=== PATIENT | male | born 1930 | race Caucasian/White ===

== ENCOUNTER → 2016-10-22 | Outpatient (CLI) | payer BC ==
[~2016-10-22] MED LIST: ALPPOPSD OPB; B-CO-25 PO; CHOL200027 PO; DORZ1SOL6 OPB; DUTACAP PO; LATA0.5S OPB; LEVO50TA PO; LPR25 PO; MIRA1TAB3 PO; MULT-190 PO; MULT-506 PO; WARF2.5T8 PO; WARF5TAB7 PO; ZNTT/150 PO
[2016-10-22 09:39] LABS: PROTHROMBIN TIME (PATIENT) 21.8 SECONDS (9.0-12.0)
== END ==
LOC: C.LABFOXMH 09:09
PROVIDERS: ATTEND Internal Medicine
DX: Z79.01 Long term (current) use of anticoagulants (principal)

== ENCOUNTER → 2016-11-05 | Outpatient (CLI) | payer BC ==
[2016-11-05 09:34] LABS: INR 2.2 (0.9-1.1); PROTHROMBIN TIME (PATIENT) 24.8 SECONDS (9.0-12.0)
== END | disposition home or self-care (01) ==
LOC: C.LABFOXMH 09:02
PROVIDERS: ATTEND Internal Medicine
DX: Z51.81 Encounter for therapeutic drug level monitoring (principal); Z79.01 Long term (current) use of anticoagulants

== ENCOUNTER → 2016-12-03 | Outpatient (CLI) | payer BC ==
[2016-12-03 08:48] LABS: HEMATOCRIT 40.8 % (42-52); MEAN CELL VOLUME 96.9 fL (80-100); MEAN CORPUSCULAR HEMOGLOBIN 34.2 pg (25-34); MEAN CORPUSCULAR HGB CONC 35.3 g/dl (32-36); MEAN PLATELET VOLUME 10.6 fL (7.4-10.4); PLATELET COUNT 147 K/uL (130-400); RED BLOOD COUNT 4.21 M/uL (4.7-6.1); WHITE BLOOD COUNT 5.92 K/uL (4.8-10.8)
[2016-12-03 08:56] LABS: INR 2.7 (0.9-1.1); PROTHROMBIN TIME (PATIENT) 29.6 SECONDS (9.0-12.0)
[2016-12-03 08:57] LABS: BLOOD UREA NITROGEN 24 mg/dl (7-18); BUN/CREATININE RATIO 20.3 (10-20); CALCIUM 8.9 mg/dl (8.5-10.1); CARBON DIOXIDE 25 mmol/L (21-32); CHLORIDE 111 mmol/L (98-107); GLUCOSE 90 mg/dl (70-99); POTASSIUM 3.9 mmol/L (3.5-5.1); SODIUM 144 mmol/L (136-145)
== END ==
LOC: C.LABFOXMH 08:24
PROVIDERS: ATTEND Internal Medicine
DX: Z79.01 Long term (current) use of anticoagulants (principal); I10 Essential (primary) hypertension

== ENCOUNTER → 2016-12-31 | Outpatient (CLI) | payer BC ==
[2016-12-31 09:25] LABS: INR 2.6 (0.9-1.1); PROTHROMBIN TIME (PATIENT) 28.4 SECONDS (9.0-12.0)
== END | disposition home or self-care (01) ==
LOC: C.LABFOXMH 08:41
PROVIDERS: ATTEND Internal Medicine
DX: Z79.01 Long term (current) use of anticoagulants (principal)

== ENCOUNTER → 2017-01-28 | Outpatient (CLI) | payer BC ==
[2017-01-28 09:10] LABS: INR 2.7 (0.9-1.1); PROTHROMBIN TIME (PATIENT) 29.9 SECONDS (9.0-12.0)
== END | disposition home or self-care (01) ==
LOC: C.LABFOXMH 08:42
PROVIDERS: ATTEND Internal Medicine
DX: Z51.81 Encounter for therapeutic drug level monitoring (principal); Z79.01 Long term (current) use of anticoagulants

== ENCOUNTER → 2017-02-25 | Outpatient (CLI) | payer BC ==
[2017-02-25 08:53] LABS: INR 3.1 (0.9-1.1); PROTHROMBIN TIME (PATIENT) 34.7 SECONDS (9.0-12.0)
== END | disposition home or self-care (01) ==
LOC: C.LABFOXMH 08:03
PROVIDERS: ATTEND Nurse Practitioner Family
DX: Z79.01 Long term (current) use of anticoagulants (principal)

== ENCOUNTER → 2017-03-04 | Outpatient (CLI) | payer BC ==
[2017-03-04 09:58] LABS: INR 2.7 (0.9-1.1); PROTHROMBIN TIME (PATIENT) 29.9 SECONDS (9.0-12.0)
== END ==
LOC: C.LABFOXMH 08:45
PROVIDERS: ATTEND Internal Medicine
DX: Z79.01 Long term (current) use of anticoagulants (principal)

== ENCOUNTER → 2017-03-18 | Outpatient (CLI) | payer BC ==
[2017-03-18 08:40] LABS: INR 3.2 (0.9-1.1); PROTHROMBIN TIME (PATIENT) 35.5 SECONDS (9.0-12.0)
== END ==
LOC: C.LABFOXMH 08:01
PROVIDERS: ATTEND Internal Medicine
DX: Z79.01 Long term (current) use of anticoagulants (principal)

== ENCOUNTER → 2017-04-08 | Outpatient (CLI) | payer BC ==
[2017-04-08 10:51] LABS: INR 2.7 (0.9-1.1); PROTHROMBIN TIME (PATIENT) 29.6 SECONDS (9.0-12.0)
== END ==
LOC: C.LABFOXMH 09:37
PROVIDERS: ATTEND Internal Medicine
DX: Z79.01 Long term (current) use of anticoagulants (principal)

== ENCOUNTER → 2017-04-15 | Outpatient (CLI) | payer BC ==
[2017-04-15 09:33] LABS: INR 2.1 (0.9-1.1)
== END | disposition home or self-care (01) ==
LOC: C.LABFOXMH 06:23
PROVIDERS: ATTEND Nurse Practitioner Family
DX: Z51.81 Encounter for therapeutic drug level monitoring (principal); Z79.01 Long term (current) use of anticoagulants

== ENCOUNTER → 2017-04-29 | Outpatient (CLI) | payer BC ==
[2017-04-29 09:04] LABS: INR 2.1 (0.9-1.1); PROTHROMBIN TIME (PATIENT) 23.1 SECONDS (9.0-12.0)
== END ==
LOC: C.LABFOXMH 08:33
PROVIDERS: ATTEND Nurse Practitioner Family
DX: Z79.01 Long term (current) use of anticoagulants (principal)

== ENCOUNTER 2017-05-16 22:56 | Emergency (ER) | payer BC ==
[~2017-05-16] VITALS: Ht 172.7 cm; Wt 64.6 kg
[~2017-05-16 22:56] MED LIST changes: -B-CO-25 PO; -LATA0.5S OPB; -MIRA1TAB3 PO; -MULT-506 PO; -ZNTT/150 PO
[2017-05-16 23:04] VITALS: TEMP 36.6; Ht 172.7 cm; Wt 64.6 kg
[2017-05-16] MEDS ORDERED: MULT-506 PO (23:19)
[2017-05-16] MEDS ORDERED: B-CO-25 PO (23:22)
[2017-05-16] MEDS ORDERED: ZNTT/150 PO (23:23)
[2017-05-16] MEDS ORDERED: LATA0.5S OPB (23:24)
[2017-05-16] MEDS ORDERED: MIRA1TAB3 PO (23:25)
[2017-05-17 00:16] LABS: BASO % 0.4 %; BASO ABS # 0.03 K/uL (0-0.2); COMPLETE YES; EOS % 2.1 %; HEMATOCRIT 41.2 % (42-52); IG% 0.3 %; LYMPH % 20.5 %; LYMPH ABS # 1.43 K/uL (1.2-3.4); MEAN CORPUSCULAR HEMOGLOBIN 34.6 pg (25-34); MEAN PLATELET VOLUME 10.1 fL (7.4-10.4); MONO % 9.2 %; NEUT % 67.5 %; PLATELET COUNT 125 K/uL (130-400); RED BLOOD COUNT 4.16 M/uL (4.7-6.1); WHITE BLOOD COUNT 6.98 K/uL (4.8-10.8)
[2017-05-17 00:30] LABS: INR 2.4 (0.9-1.1); PROTHROMBIN TIME (PATIENT) 26.9 SECONDS (9.0-12.0)
[2017-05-17 00:33] LABS: BUN/CREATININE RATIO 19.9 (10-20); CREATININE 1.1 mg/dl (0.60-1.40); POTASSIUM 4.3 mmol/L (3.5-5.1)
[2017-05-17] MEDS ORDERED: OPTIRAY 320 IV PRN (02:45)
--- NOTE | 2017-05-17 04:23 | EMERGENCY ROOM VISIT NOTE ---
History Report prepared by Rahat: Juan Meza Under the Supervision of: Dr. Melyssa Galicia D.O. First contact with patient: 23:27 Chief Complaint: FALL Stated Complaint: fall History of Present Illness The patient is a 87 year old male who presents to the Emergency Room with complaints of constant forehead pain s/p fall occurring shortly prior to arrival. He is on Coumadin for a-fib. The patient states that he slipped while changing his pants and fell forward. He states that he hit his forehead and left shoulder during the fall. He is legally blind. The patient did not lose consciousness. He states that he did not feel weak or abnormal prior to his fall. He believes that his tetanus is up to date. Source of History: patient Onset: Shortly prior to arrival Position: head (forehead) Timing: constant Associated Symptoms: No LOC Note: Additional symptoms: left shoulder pain. Review of Systems See HPI for pertinent positives & negatives. A total of 10 systems reviewed and were otherwise negative. 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 Social History Smoking Status: Former Smoker Alcohol Use: none Drug Use: none Marital Status: Housing Status: lives with family Occupation Status: retired Current/Historical Medications Scheduled B-Complex W/ Folic Acid (Super B Complex Maxi), 1 TAB PO DAILY Brimonidine Tartrate (Alphagan P), 1 DROP OPB BID Cholecalciferol (Vitamin D-3), 1 TAB PO QAM Dorzolamide Hcl-Timolol Maleat (Cosopt Oph), 1 DROPS OPB BID Dutasteride-Tamsulosin Hcl (Caroline), 1 CAP PO QPM Latanoprost (Xalatan 0.005% Oph Carlota), 1 DROPS OPB HS Levothyroxine Sodium (Synthroid), 50 MCG PO QAM Metoprolol Tartrate (Lopressor), 12.5 MG PO BID Mirabegron (Myrbetriq Er), 50 MG PO DAILY Multivitamin (Multivitamin), 1 TAB PO DAILY Ocuvite Preservision (Ocuvite Preservision), 1 TAB PO BID Ranitidine (Zantac), 150 MG PO BID Warfarin Sod (Jantoven), 2.5 MG PO 5XWK Warfarin Sod (Jantoven), 5 MG PO 2XWK Allergies Coded Allergies: No Known Allergies (Verified , 05/16/17) Physical Exam Vital Signs Date Time Temp Pulse Resp B/P (MAP) Pulse Ox O2 Delivery O2 Flow Rate FiO2 05/17/17 04:35 96 94 05/17/17 04:30 166/104 05/17/17 04:20 89 98 05/17/17 04:05 93 99 05/17/17 04:00 153/99 05/17/17 03:50 98 99 05/17/17 03:38 93 18 145/88 99 Room Air 05/17/17 03:35 92 98 05/17/17 03:34 145/88 05/17/17 03:01 147/83 05/17/17 02:50 86 98 05/17/17 02:35 90 99 05/17/17 02:30 148/88 05/17/17 02:21 94 98 05/17/17 02:06 79 97 05/17/17 02:01 128/93 05/17/17 01:56 80 99 05/17/17 01:41 88 99 05/17/17 01:30 160/87 05/17/17 01:26 103 95 05/17/17 01:11 89 99 05/17/17 01:06 145/94 05/17/17 00:25 87 16 149/88 99 Room Air 05/17/17 00:24 149/88 05/16/17 23:04 36.6 84 20 158/92 99 Room Air Physical Exam GENERAL: alert, well appearing, well nourished, no distress, non-toxic HEAD: Contusion and edema to the left frontoparietal region. Old surgical site, well healed on the left forehead from prior excision. EYE EXAM: normal conjunctiva, PERRL and EOM's grossly intact. Decreased vision, but chronic. OROPHARYNX: no exudate, no erythema, lips, buccal mucosa, and tongue normal and mucous membranes are moist NECK: supple, no nuchal rigidity, no adenopathy. Mild tenderness to the left lower left paraspinal area. No midline tenderness. LUNGS: Clear to auscultation. Lung sounds decreased. Normal chest wall mechanics HEART: Irregular. No murmurs, S1 normal and S2 normal ABDOMEN: abdomen soft, non-tender, normo-active bowel sounds, no masses, no rebound or guarding. BACK: Back is symmetrical on inspection and there is no deformity, no midline tenderness, no CVA tenderness. SKIN: no rashes and no bruising UPPER EXTREMITIES: Skin avulsion just proximal to the thenar eminence. Bleeding controlled. Normal pulses, sensory and strength. ALTAF has a dressing in place at the left elbow, which states is from prior injury. Tenderness and contusion to the left shoulder over the humeral head. Decreased ROM secondary to pain. No obvious dislocation. LOWER EXTREMITIES: Scattered superficial abrasions to the bilateral knees. Normal pulses. No deformities. No edema or joint effusion. NEURO EXAM: Normal sensorium, cranial nerves II-XII grossly intact, normal speech, no gross weakness of arms, no gross weakness of legs. Medical Decision & Procedures ER Provider Diagnostic Interpretation: CT results per statrad and my review. CT HEAD: No acute intracranial abnormality identified. Minimal right posterior scalp hematoma/bruising. No skull fracture. Chronic small vessel ischemic disease and cerebral volume loss, increased compared to prior exam in 2009. CT C-SPINE: No acute traumatic abnormality identified. Multilevel degenerative changes of the cervical spine. CT CHEST With Contrast: The heart appears normal. The thoracic aorta appears normal. No definite pulmonary embolus although this was not performed as a PE study. Mild dependent atelectasis bilaterally. Lungs are otherwise clear. No focal consolidation, pleural effusion, or pneumothorax. Calcified prevascular and AP window lymph nodes likely represent sequel of prior granulomatous disease. Status post cholecystectomy. Punctate calcifications in the spleen likely represent old granulomatous disease. Two View Chest X-ray interpreted by me: No cardiomegaly. No wide mediastinum. No pneumothorax. No focal infiltrate. No fracture. Two View Left Shoulder X-ray interpreted by me: No humerus fracture. No clavicular fracture. Questionable scapula fracture. No dislocation. Three View Right Hand X-ray interpreted by me: No fracture or foreign body. Two View Pelvis X-ray interpreted by me: No fracture or dislocation. Laboratory Results 05/17/17 00:00 Red Blood Count 4.16, Mean Corpuscular Volume 99.0, Mean Corpuscular Hemoglobin 34.6, Mean Corpuscular Hemoglobin Concent 35.0, Mean Platelet Volume 10.1, Neutrophils (%) (Auto) 67.5, Lymphocytes (%) (Auto) 20.5, Monocytes (%) (Auto) 9.2, Eosinophils (%) (Auto) 2.1, Basophils (%) (Auto) 0.4, Neutrophils # (Auto) 4.71, Lymphocytes # (Auto) 1.43, Monocytes # (Auto) 0.64, Eosinophils # (Auto) 0.15, Basophils # (Auto) 0.03 05/17/17 00:00 Test 05/17/17 00:00 White Blood Count 6.98 K/uL (4.8-10.8) Red Blood Count 4.16 M/uL (4.7-6.1) Hemoglobin 14.4 g/dL (14.0-18.0) Hematocrit 41.2 % (42-52) Mean Corpuscular Volume 99.0 fL (80-100) Mean Corpuscular Hemoglobin 34.6 pg (25-34) Mean Corpuscular Hemoglobin Concent 35.0 g/dl (32-36) Platelet Count 125 K/uL (130-400) Mean Platelet Volume 10.1 fL (7.4-10.4) Neutrophils (%) (Auto) 67.5 % Lymphocytes (%) (Auto) 20.5 % Monocytes (%) (Auto) 9.2 % Eosinophils (%) (Auto) 2.1 % Basophils (%) (Auto) 0.4 % Neutrophils # (Auto) 4.71 K/uL (1.4-6.5) Lymphocytes # (Auto) 1.43 K/uL (1.2-3.4) Monocytes # (Auto) 0.64 K/uL (0.11-0.59) Eosinophils # (Auto) 0.15 K/uL (0-0.5) Basophils # (Auto) 0.03 K/uL (0-0.2) RDW Standard Deviation 49.9 fL (36.4-46.3) RDW Coefficient of Variation 14.0 % (11.5-14.5) Immature Granulocyte % (Auto) 0.3 % Immature Granulocyte # (Auto) 0.02 K/uL (0.00-0.02) Prothrombin Time 26.9 SECONDS (9.0-12.0) Prothromb Time International Ratio 2.4 (0.9-1.1) Anion Gap 4.0 mmol/L (3-11) Est Creatinine Clear Calc Drug Dose 41.6 ml/min Estimated GFR () 68.6 Estimated GFR (Non- 59.2 BUN/Creatinine Ratio 19.9 (10-20) Calcium Level 9.0 mg/dl (8.5-10.1) Laboratory results per my review. ECG Indication: other (fall) Rate (beats per minute): 81 Rhythm: atrial fibrillation Findings: RBBB, T-wave inversion, other (LAD. ) Comparison ECG Date: Aug 13, 2015 Change: no significant change ED Course 2329: The patient was evaluated in room A4B. A complete history and physical exam was performed. 0415: Upon reevaluation, the patient is feeling better. I discussed the findings and the treatment plan with the patient. He verbalizes agreement and understanding. The patient was discharged home. Medical Decision Differential diagnosis: Etiologies such as fracture, dislocation, intra-abdominal, pneumothorax, intrathoracic , intracranial, neurologic, as well as other traumatic pathologies were entertained. Patient well-appearing here despite complaints. Patient with history of falls due to poor vision. states he is frequently off balance as a result. No traumatic injury identified other than contusions and abrasions as well as skin tears noted on exam. Patient had no other complaints or evolving symptoms during time he was observed in the emergency room. Patient's INR therapeutic, labs otherwise unremarkable. Discussed with patient and family close follow-up with family doctor, continued use of medications, symptoms to watch and return for, they verbalized understanding were agreeable with plan. Doubt any additional occult traumatic intra-abdominal or pelvic injury. Doubt any additional occult fracture. Medication Reconcilliation Current Medication List: was personally reviewed by me Blood Pressure Screening Patient's blood pressure: Elevated blood pressure Blood pressure disposition: Elevated BP felt to be situational Impression Primary Impression: Fall Additional Impressions: Contusion of multiple sites Abrasion Skin tear Scribe Attestation The scribe's documentation has been prepared under my direction and personally reviewed by me in its entirety. I confirm that the note above accurately reflects all work, treatment, procedures, and medical decision making performed by me. Departure Information Dispostion Home / Self-Care Referrals Jose Julian (PCP) Patient Instructions My [facility] Additional Instructions Please continue regular medications as prescribed. Please follow up with her family doctor to assure that all of your injuries are healing well. Please monitor for any increasing pain, trouble breathing, dizziness, vomiting, redness /discharge/drainage from around your wounds, or if you have any other new or concerning symptoms, please return the emergency room. Problem Qualifiers Primary Impression: Fall Encounter type: initial encounter Qualified Codes: W19.XXXA - Unspecified fall, initial encounter
[2017-05-17 04:30] VITALS: BP 166/104
[2017-05-17 04:35] VITALS: PULSE 96; O2SAT 94
--- NOTE | 2017-05-17 06:59 | DIAGNOSTIC IMAGING REPORT ---
HEAD CT NONCONTRAST CT DOSE: HISTORY: Head injury. Fall. trauma, chi, coumadin TECHNIQUE: Multiaxial CT images of the head were performed without the use of intravenous contrast. Automated exposure control was utilized for this study. A dose lowering technique was utilized adhering to the principles of ALARA. Comparison: Head CT 09/23/2009. Findings: The paranasal sinuses and mastoid air cells are clear. The calvarium and skull base are intact. There is no mass, hematoma, midline shift, acute infarct. White matter hypodensity is nonspecific but suggestive of microvascular ischemic change. The ventricles and sulci demonstrate mild age-related involutional changes. Impression: No acute intracranial abnormality. Atrophy and microvascular ischemic changes. Electronically signed by: Mahad Pickens M.D. 05/17/2017 6:58 AM Dictated Date/Time: 05/17/2017 6:56 AM
--- NOTE | 2017-05-17 07:35 | DIAGNOSTIC IMAGING REPORT ---
CERVICAL SPINE CT CT DOSE: 1091.29 mGy.cm HISTORY: trauma TECHNIQUE: Multiaxial CT images of the cervical spine were performed and reformatted in the sagittal and coronal plane without the use of contrast. A dose lowering technique was utilized adhering to the principles of ALARA. COMPARISON: None. FINDINGS: No acute fractures. No subluxation. Prevertebral soft tissues and the C1-C2 interval are intact. No pneumothorax. Moderate disc space narrowing at C3-C4, C4-C5, and C5-C6. Mild disc space narrowing at C6-C7. Lucency through the right anterior C4 osteophyte does not appear to represent an acute fracture. There is no adjacent soft tissue swelling. IMPRESSION: No acute fractures within the cervical spine. Electronically signed by: Mahad Pickens M.D. 05/17/2017 7:34 AM Dictated Date/Time: 05/17/2017 7:30 AM
--- NOTE | 2017-05-17 07:56 | DIAGNOSTIC IMAGING REPORT ---
CHEST CT WITH CONTRAST CT DOSE: 305.35 mGy.cm HISTORY: trauma, left scapula/shoulder TECHNIQUE: Multiaxial CT images of the chest were performed following the intravenous administration of contrast. A dose lowering technique was utilized adhering to the principles of ALARA. COMPARISON: None. FINDINGS: No pneumothorax. No pleural effusions. No fractures within the visualized osseous structures. Mild dependent changes seen at the lung bases. The lungs are otherwise clear. The heart is mildly enlarged. Normal caliber thoracic aorta. No mediastinal or hilar lymphadenopathy. A few calcified mediastinal lymph nodes. The central pulmonary arteries are patent. Cholecystectomy. Calcifications within the spleen. A 1.5 cm hypervascular focus within the left hepatic lobe. This favors a hepatic varix. IMPRESSION: No acute abnormality identified within the chest. Additional findings as described above. Electronically signed by: Mahad Pickens M.D. 05/17/2017 7:55 AM Dictated Date/Time: 05/17/2017 7:49 AM
--- NOTE | 2017-05-17 08:25 | DIAGNOSTIC IMAGING REPORT ---
PELVIS ONE VIEW HISTORY: trauma COMPARISON: IVP 10/15/2009 FINDINGS: There is no fracture or dislocation. Soft tissues are unremarkable. No radiopaque foreign bodies. IMPRESSION: No fractures. Electronically signed by: Mahad Pickens M.D. 05/17/2017 8:24 AM Dictated Date/Time: 05/17/2017 8:23 AM
--- NOTE | 2017-05-17 08:26 | DIAGNOSTIC IMAGING REPORT ---
CHEST 2 VIEWS ROUTINE HISTORY: trauma COMPARISON: Chest 08/13/2015. FINDINGS: The lungs are clear. Cardiac silhouette is borderline enlarged. Calcified mediastinal lymph nodes.. No pleural effusions. No pneumothorax. IMPRESSION: No acute process. Electronically signed by: Mahad Pickens M.D. 05/17/2017 8:25 AM Dictated Date/Time: 05/17/2017 8:24 AM
--- NOTE | 2017-05-17 08:28 | DIAGNOSTIC IMAGING REPORT ---
LEFT SHOULDER 3 VIEWS HISTORY: Left shoulder pain. trauma COMPARISON: None. FINDINGS: There is no fracture or dislocation. Soft tissues are unremarkable. No radiopaque foreign bodies. Mild degenerative changes. The left clavicle is intact. IMPRESSION: No fractures. Electronically signed by: Mahad Pickens M.D. 05/17/2017 8:26 AM Dictated Date/Time: 05/17/2017 8:25 AM
--- NOTE | 2017-05-17 08:29 | DIAGNOSTIC IMAGING REPORT ---
RIGHT HAND 3 VIEWS HISTORY: Right hand pain. trauma Right COMPARISON: None. FINDINGS: There is no fracture or dislocation. Soft tissues are unremarkable. No radiopaque foreign bodies. Flexion deformity at the PIP joint of the right fifth digit. This may be chronic. IMPRESSION: No fractures. Electronically signed by: Mahad Pickens M.D. 05/17/2017 8:28 AM Dictated Date/Time: 05/17/2017 8:26 AM
== END 2017-05-17 04:40 | disposition home or self-care (01) ==
LOC: EDBD 22:56 → C.EDA 22:59
DX: T14.8 Other injury of unspecified body region (principal); W19.XXXA Unspecified fall, initial encounter; I48.91 Unspecified atrial fibrillation; E03.9 Hypothyroidism, unspecified; I38 Endocarditis, valve unspecified; Z87.891 Personal history of nicotine dependence; Z79.01 Long term (current) use of anticoagulants

== ENCOUNTER → 2017-05-27 | Outpatient (CLI) | payer BC ==
[~2017-05-27] MED LIST changes: +B-CO-25 PO; +LATA0.5S OPB; +MIRA1TAB3 PO; +MULT-506 PO; +ZNTT/150 PO
[2017-05-27 08:37] LABS: INR 2.4 (0.9-1.1); PROTHROMBIN TIME (PATIENT) 26.2 SECONDS (9.0-12.0)
== END | disposition home or self-care (01) ==
LOC: C.LABFOXMH 08:02
PROVIDERS: ATTEND Nurse Practitioner Family
DX: Z51.81 Encounter for therapeutic drug level monitoring (principal); Z79.01 Long term (current) use of anticoagulants

== ENCOUNTER → 2017-06-24 | Outpatient (CLI) | payer BC ==
[2017-06-24 11:01] LABS: INR 2.1 (0.9-1.1); PROTHROMBIN TIME (PATIENT) 23.6 SECONDS (9.0-12.0)
== END | disposition home or self-care (01) ==
LOC: C.LABFOXMH 09:14
PROVIDERS: ATTEND Nurse Practitioner Family
DX: Z51.81 Encounter for therapeutic drug level monitoring (principal); Z79.01 Long term (current) use of anticoagulants

== ENCOUNTER → 2017-07-22 | Outpatient (CLI) | payer BC ==
[2017-07-22 10:05] LABS: PROTHROMBIN TIME (PATIENT) 21.5 SECONDS (9.0-12.0)
== END | disposition home or self-care (01) ==
LOC: C.LABFOXMH 09:04
PROVIDERS: ATTEND Internal Medicine Hospice and Palliative Medicine
DX: Z51.81 Encounter for therapeutic drug level monitoring (principal); Z79.01 Long term (current) use of anticoagulants

== ENCOUNTER → 2017-08-05 | Outpatient (CLI) | payer BC ==
[2017-08-05 08:35] LABS: INR 2.8 (0.9-1.1); PROTHROMBIN TIME (PATIENT) 31.5 SECONDS (9.0-12.0)
== END | disposition home or self-care (01) ==
LOC: C.LABFOXMH 08:12
PROVIDERS: ATTEND Internal Medicine
DX: Z51.81 Encounter for therapeutic drug level monitoring (principal); Z79.01 Long term (current) use of anticoagulants

== ENCOUNTER → 2017-08-19 | Outpatient (CLI) | payer BC ==
[2017-08-19 08:55] LABS: HEMATOCRIT 40.1 % (42-52); MEAN CORPUSCULAR HEMOGLOBIN 34.3 pg (25-34); MEAN CORPUSCULAR HGB CONC 34.7 g/dl (32-36); MEAN PLATELET VOLUME 10.4 fL (7.4-10.4); PLATELET COUNT 149 K/uL (130-400); RED BLOOD COUNT 4.05 M/uL (4.7-6.1); WHITE BLOOD COUNT 6.25 K/uL (4.8-10.8)
[2017-08-19 09:03] LABS: INR 3.3 (0.9-1.1); PROTHROMBIN TIME (PATIENT) 36.8 SECONDS (9.0-12.0)
[2017-08-19 09:05] LABS: ALT/SGPT 19 U/L (12-78); BLOOD UREA NITROGEN 27 mg/dl (7-18); BUN/CREATININE RATIO 26.5 (10-20); CALCIUM 8.7 mg/dl (8.5-10.1); CARBON DIOXIDE 22 mmol/L (21-32); CHLORIDE 112 mmol/L (98-107); CREATININE 1.02 mg/dl (0.60-1.40); GLUCOSE 90 mg/dl (70-99); POTASSIUM 3.9 mmol/L (3.5-5.1); SODIUM 142 mmol/L (136-145)
[2017-08-19 09:16] LABS: ALB/GLOB RATIO 1.2 (0.9-2); ALKALINE PHOSPHATASE 168 U/L (45-117); AST/SGOT 16 U/L (15-37)
== END | disposition home or self-care (01) ==
LOC: C.LABFOXMH 08:25
PROVIDERS: ATTEND Internal Medicine
DX: I10 Essential (primary) hypertension (principal); E03.9 Hypothyroidism, unspecified

== ENCOUNTER → 2017-09-02 | Outpatient (CLI) | payer BC ==
[2017-09-02 09:40] LABS: INR 2.3 (0.9-1.1); PROTHROMBIN TIME (PATIENT) 25.7 SECONDS (9.0-12.0)
== END | disposition home or self-care (01) ==
LOC: C.LABFOXMH 09:01
PROVIDERS: ATTEND Internal Medicine Hospice and Palliative Medicine
DX: Z79.01 Long term (current) use of anticoagulants (principal); Z51.81 Encounter for therapeutic drug level monitoring; E03.9 Hypothyroidism, unspecified

== ENCOUNTER → 2017-09-30 | Outpatient (CLI) | payer BC ==
[2017-09-30 08:18] LABS: INR 2.2 (0.9-1.1); PROTHROMBIN TIME (PATIENT) 22.6 SECONDS (9.0-12.0)
== END | disposition home or self-care (01) ==
LOC: C.LABFOXMH 07:55
PROVIDERS: ATTEND Internal Medicine
DX: Z79.01 Long term (current) use of anticoagulants (principal)

== ENCOUNTER 2017-10-19 16:07 | Observation (INO) | payer BC ==
[~2017-10-19] VITALS: Ht 170.2 cm; Wt 58.0 kg
[2017-10-19] MEDS ORDERED: SODIUM CHLORIDE 0.9% 1000ML 1,000 ML IV STA (17:19)
[2017-10-19] MEDS ORDERED: SODIUM CHLORIDE 0.9% 500ML 500 ML IV STA (17:19)
[2017-10-19] MEDS ORDERED: RMNER16 PO (17:40)
--- NOTE | 2017-10-19 18:20 | DIAGNOSTIC IMAGING REPORT ---
CHEST ONE VIEW PORTABLE CLINICAL HISTORY: Weakness. COMPARISON STUDY: Chest radiograph and chest CT May 17, 2017. FINDINGS: No pneumothorax or pleural effusion is present. There is no consolidation. A calcified prevascular lymph node is noted. Moderate cardiomegaly is noted without evidence for pulmonary edema. A nodular density projecting over left lower lung favors a nipple shadow. There are cholecystomy clips. IMPRESSION: 1. No acute cardiomegaly findings. 2. Moderate cardiomegaly. 3. 1 cm nodular density which projects over the left lower lung. This favors a nipple shadow however a follow-up PA and shallow oblique radiographs of the chest with nipple markers are recommended. Electronically signed by: Torsten Black M.D. 10/19/2017 6:19 PM Dictated Date/Time: 10/19/2017 6:17 PM
[2017-10-19 18:41] LABS: BASO % 0.4 %; BASO ABS # 0.03 K/uL (0-0.2); EOS % 1.5 %; EOS ABS # 0.11 K/uL (0-0.5); HEMATOCRIT 47.7 % (42-52); HEMOGLOBIN 16.8 g/dL (14.0-18.0); IG# 0.02 K/uL (0.00-0.02); LYMPH % 27.4 %; LYMPH ABS # 2.06 K/uL (1.2-3.4); MEAN CELL VOLUME 98.4 fL (80-100); MEAN CORPUSCULAR HEMOGLOBIN 34.6 pg (25-34); MEAN CORPUSCULAR HGB CONC 35.2 g/dl (32-36); MEAN PLATELET VOLUME 10.5 fL (7.4-10.4); MONO % 9.2 %; MONO ABS # 0.69 K/uL (0.11-0.59); NEUT % 61.2 %; NEUT ABS # 4.62 K/uL (1.4-6.5); PLATELET COUNT 156 K/uL (130-400); RED CELL DISTRIBUTION WIDTH CV 13.6 % (11.5-14.5); RED CELL DISTRIBUTION WIDTH SD 48.5 fL (36.4-46.3); WHITE BLOOD COUNT 7.53 K/uL (4.8-10.8)
[2017-10-19 18:52] LABS: PTT PATIENT 36.3 SECONDS (21.0-31.0)
[2017-10-19 18:54] LABS: INR 3.8 (0.9-1.1)
[2017-10-19 18:59] LABS: ALBUMIN 3.8 gm/dl (3.4-5.0); ALT/SGPT 23 U/L (12-78); AST/SGOT 18 U/L (15-37); BLOOD UREA NITROGEN 53 mg/dl (7-18); CARBON DIOXIDE 33 mmol/L (21-32); CREATININE 1.51 mg/dl (0.60-1.40); GLUCOSE 94 mg/dl (70-99); LIPASE 241 U/L (73-393); POTASSIUM 3.1 mmol/L (3.5-5.1); SODIUM 140 mmol/L (136-145)
[2017-10-19 19:08] LABS: ALKALINE PHOSPHATASE 118 U/L (45-117); CKMB 0.7 ng/ml (0.5-3.6); TOTAL PROTEIN 7.1 gm/dl (6.4-8.2)
--- NOTE | 2017-10-19 20:14 | DIAGNOSTIC IMAGING REPORT ---
ULTRASOUND RIGHT UPPER QUADRANT ABDOMEN CLINICAL HISTORY: Elevated hepatic transaminases. Weakness. COMPARISON STUDY: Abdominal ultrasound dated 01/04/2010. TECHNIQUE: Real-time, grayscale, and color flow sonography of the right upper quadrant of the abdomen was performed. Images are reviewed in the transverse and longitudinal planes. FINDINGS: Liver: The liver is normal in size and echotexture. There is no intrahepatic biliary ductal dilatation. The main portal vein is patent. Gallbladder: The gallbladder is surgically absent. The common bile duct measures up to 0.4 cm in diameter. Pancreas: Not well assessed due to overlying bowel gas. Right kidney: Survey images of the right kidney demonstrate cortical atrophy. There is no hydronephrosis. Ascites: None. IMPRESSION: 1. Unremarkable sonographic assessment of the right upper quadrant noting status post cholecystectomy. 2. The pancreas was not visualized due to overlying bowel gas. Electronically signed by: Ranjan Roa M.D. 10/19/2017 8:13 PM Dictated Date/Time: 10/19/2017 8:12 PM
[2017-10-19] MEDS ORDERED: POTASSIUM CHLORIDE 10 MEQ TABCR PO STA (20:36)
[2017-10-19] MEDS ORDERED: NITROGLYCERIN 0.4 MG SL PER TAB CHARGE SL PRN (20:45)
[2017-10-19] MEDS ORDERED: MAGNESIUM HYDROXIDE SUSP 30 ML UDC PO PRN (20:45)
[2017-10-19] MEDS ORDERED: ACETAMINOPHEN 325 MG TAB PO PRN (20:45)
[2017-10-19] MEDS ORDERED: ONDANSETRON INJ 2 MG/ML 2 ML VIAL IV PRN (20:45)
--- NOTE | 2017-10-19 21:15 | EMERGENCY ROOM VISIT NOTE ---
History Report prepared by Rahat: Dylon Miguel Under the Supervision of: Dr. Satnam Tierney M.D. First contact with patient: 16:18 Chief Complaint: WEAKNESS Stated Complaint: WEAKNESS,DIZZINESS History of Present Illness The patient is an 87 year old male who presents to the Emergency Room with complaints of worsening weakness and dizziness. The patient's called the nurses station who found that he was hypotensive. His pressure was 97/52. They did in ECG and faxed it to his configuration manager who found EKG changes including new T-wave inversions and ST-depressions. The patient's states that he mentioned that he felt as though he was going to pass out. The notes that he has been having worsening trouble with incontinence which has been bothering him for the past week or so. The patient's urine was tested for infection last Thursday, one week ago. The urine was unremarkable. The patient is on Coumadin for atrial fibrillation. Pt denies LOC, headache, fevers, chills, diaphoresis, visual changes, neck pain, chest pain, breathing difficulties, nausea, vomiting, abdominal pain, back pain, melena, hematochezia, urinary symptoms, numbness, weakness, lymphadenopathy, rash, or other complaints. Source of History: patient, spouse/significant other Position: other (Global) Quality: other (weakness) Timing: worsening Associated Symptoms: + urinary symptoms, No chest pain, No SOB Review of Systems See HPI for pertinent positives and negatives. A total of ten systems were reviewed and were otherwise negative. 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 Social History Smoking Status: Former Smoker Alcohol Use: none Drug Use: none Marital Status: Housing Status: lives with family Occupation Status: retired Current/Historical Medications Scheduled B-Complex W/ Folic Acid (Super B Complex Maxi), 1 TAB PO DAILY Brimonidine Tartrate (Alphagan P), 1 DROP OPB BID Cholecalciferol (Vitamin D-3), 1 TAB PO QAM Dorzolamide Hcl-Timolol Maleat (Cosopt Oph), 1 DROPS OPB BID Dutasteride-Tamsulosin Hcl (Caroline), 1 CAP PO QPM Galantamine Hydrobromide (Razadyne Ext Rel), 16 MG PO DAILY Latanoprost (Xalatan 0.005% Oph Carlota), 1 DROPS OPB HS Levothyroxine Sodium (Synthroid), 50 MCG PO QAM Metoprolol Tartrate (Lopressor), 12.5 MG PO BID Mirabegron (Myrbetriq Er), 50 MG PO DAILY Multivitamin (Multivitamin), 1 TAB PO DAILY Ocuvite Preservision (Ocuvite Preservision), 1 TAB PO BID Warfarin Sod (Jantoven), 2.5 MG PO DIRECTED Allergies Coded Allergies: No Known Allergies (Verified , 05/16/17) Physical Exam Vital Signs Date Time Temp Pulse Resp B/P (MAP) Pulse Ox O2 Delivery O2 Flow Rate FiO2 10/19/17 20:39 82 10/19/17 20:15 78 16 122/75 98 Room Air 10/19/17 18:24 36.9 84 18 116/77 99 Room Air 10/19/17 17:25 97 Room Air 10/19/17 17:18 36.6 76 18 118/82 98 Room Air 10/19/17 16:32 76 10/19/17 16:13 36.3 82 20 95/66 98 Room Air Physical Exam GENERAL: Awake, alert, age appropriate, tired-appearing, in no distress HENT: Normocephalic, atraumatic. Oropharynx unremarkable. EYES: Normal conjunctiva. Sclera non-icteric. NECK: Supple. No nuchal rigidity. FROM. No JVD. RESPIRATORY: Clear to auscultation. CARDIAC: Regular rate, normal rhythm. Extremities warm and well perfused. Pulses equal. ABDOMEN: Soft, non-distended. No tenderness to palpation. No rebound or guarding. No masses. RECTAL: Deferred. MUSCULOSKELETAL: Chest examination reveals no tenderness. The back is symmetrical on inspection without obvious abnormality. There is no CVA tenderness to palpation. No joint edema. LOWER EXTREMITIES: Minor scratch on the left ying. Calves are equal size bilaterally and non-tender. No edema. No discoloration. NEURO: Normal sensorium. No sensory or motor deficits noted. SKIN: No rash or jaundice noted. Medical Decision & Procedures ER Provider Diagnostic Interpretation: Radiology results as stated below per my review and radiologist interpretation: CHEST ONE VIEW PORTABLE CLINICAL HISTORY: Weakness. COMPARISON STUDY: Chest radiograph and chest CT May 17, 2017. FINDINGS: No pneumothorax or pleural effusion is present. There is no consolidation. A calcified prevascular lymph node is noted. Moderate cardiomegaly is noted without evidence for pulmonary edema. A nodular density projecting over left lower lung favors a nipple shadow. There are cholecystomy clips. IMPRESSION: 1. No acute cardiomegaly findings. 2. Moderate cardiomegaly. 3. 1 cm nodular density which projects over the left lower lung. This favors a nipple shadow however a follow-up PA and shallow oblique radiographs of the chest with nipple markers are recommended. Electronically signed by: Torsten Black M.D. 10/19/2017 6:19 PM Dictated Date/Time: 10/19/2017 6:17 PM Laboratory Results 10/19/17 18:20 Red Blood Count 4.85, Mean Corpuscular Volume 98.4, Mean Corpuscular Hemoglobin 34.6, Mean Corpuscular Hemoglobin Concent 35.2, Mean Platelet Volume 10.5, Neutrophils (%) (Auto) 61.2, Lymphocytes (%) (Auto) 27.4, Monocytes (%) (Auto) 9.2, Eosinophils (%) (Auto) 1.5, Basophils (%) (Auto) 0.4, Neutrophils # (Auto) 4.62, Lymphocytes # (Auto) 2.06, Monocytes # (Auto) 0.69, Eosinophils # (Auto) 0.11, Basophils # (Auto) 0.03 10/19/17 18:20 Test 10/19/17 18:00 10/19/17 18:20 Urine Color YELLOW Urine Appearance CLEAR (CLEAR) Urine pH 5.0 (4.5-7.5) Urine Specific [place] 1.013 (1.000-1.030) Urine Protein NEG (NEG) Urine Glucose (UA) NEG (NEG) Urine Ketones NEG (NEG) Urine Occult Blood NEG (NEG) Urine Nitrite NEG (NEG) Urine Bilirubin NEG (NEG) Urine Urobilinogen NEG (NEG) Urine Leukocyte Esterase NEG (NEG) White Blood Count 7.53 K/uL (4.8-10.8) Red Blood Count 4.85 M/uL (4.7-6.1) Hemoglobin 16.8 g/dL (14.0-18.0) Hematocrit 47.7 % (42-52) Mean Corpuscular Volume 98.4 fL (80-100) Mean Corpuscular Hemoglobin 34.6 pg (25-34) Mean Corpuscular Hemoglobin Concent 35.2 g/dl (32-36) Platelet Count 156 K/uL (130-400) Mean Platelet Volume 10.5 fL (7.4-10.4) Neutrophils (%) (Auto) 61.2 % Lymphocytes (%) (Auto) 27.4 % Monocytes (%) (Auto) 9.2 % Eosinophils (%) (Auto) 1.5 % Basophils (%) (Auto) 0.4 % Neutrophils # (Auto) 4.62 K/uL (1.4-6.5) Lymphocytes # (Auto) 2.06 K/uL (1.2-3.4) Monocytes # (Auto) 0.69 K/uL (0.11-0.59) Eosinophils # (Auto) 0.11 K/uL (0-0.5) Basophils # (Auto) 0.03 K/uL (0-0.2) RDW Standard Deviation 48.5 fL (36.4-46.3) RDW Coefficient of Variation 13.6 % (11.5-14.5) Immature Granulocyte % (Auto) 0.3 % Immature Granulocyte # (Auto) 0.02 K/uL (0.00-0.02) Prothrombin Time 38.6 SECONDS (9.0-12.0) Prothromb Time International Ratio 3.8 (0.9-1.1) Activated Partial Thromboplast Time 36.3 SECONDS (21.0-31.0) Partial Thromboplastin Ratio 1.4 Anion Gap 5.0 mmol/L (3-11) Est Creatinine Clear Calc Drug Dose 31.0 ml/min Estimated GFR () 46.8 Estimated GFR (Non- 40.4 BUN/Creatinine Ratio 35.2 (10-20) Calcium Level 9.0 mg/dl (8.5-10.1) Magnesium Level 2.5 mg/dl (1.8-2.4) Total Bilirubin 2.2 mg/dl (0.2-1) Direct Bilirubin 0.5 mg/dl (0-0.2) Aspartate Amino Transf (AST/SGOT) 18 U/L (15-37) Alanine Aminotransferase (ALT/SGPT) 23 U/L (12-78) Alkaline Phosphatase 118 U/L (45-117) Total Creatine Kinase 44 U/L (39-308) Creatine Kinase MB 0.7 ng/ml (0.5-3.6) Creatine Kinase MB Ratio 1.6 (0-3.0) Troponin I < 0.015 ng/ml (0-0.045) Total Protein 7.1 gm/dl (6.4-8.2) Albumin 3.8 gm/dl (3.4-5.0) Lipase 241 U/L (73-393) Thyroid Stimulating Hormone (TSH) 0.963 uIu/ml (0.300-4.500) Laboratory results reviewed by me Medications Administered Medications (Trade) Dose Ordered Sig/Wilmer Route Start Time Stop Time Status Last Admin Dose Admin Sodium Chloride 1,000 ml @ 125 mls/hr Q8H STAT IV 10/19/17 17:19 10/20/17 01:18 10/19/17 18:24 125 MLS/HR Sodium Chloride 500 ml @ 999 mls/hr Q31M STAT IV 10/19/17 17:19 10/19/17 17:49 DC 10/19/17 17:42 999 MLS/HR ECG Indication: weakness Rate (beats per minute): 74 Rhythm: normal sinus Findings: ST depression, no ectopy Comparison ECG Date: Change: ST-depression slightly more pronounced. ED Course 1620: The patient was evaluated in room C1. A complete history and physical exam was performed. 1718: Ordered Sodium Chloride 500 mL @ 999 mL/hr IV, Sodium Chloride 1000 mL @ 125 mL/hr IV. 1932: I reevaluated the patient at this time. He feels well, and his blood pressure is better. 1936: I discussed the case with Dr. Beauchamp - [facility] [place] [facility] Hospitalist. He will evaluate the patient for further treatment. Medical Decision Triage Nursing notes reviewed. The patient's presentation and history were concerning for hypotension and dizziness. Etiologies such as metabolic, infection, hypo/hyperglycemia, electrolyte abnormalities, cardiac sources, intracerebral event, toxicologic, neurologic, as well as others were entertained. The patient was evaluated. His ECG changes were subtle. There is some slight ST depressions noted laterally. The patient was not complaining of any chest pain with his low blood pressure was concerning. The patient had an unremarkable CBC. Chemistry panel revealed some mild dehydration. The patient was hydrated. Urinalysis was unremarkable. Cardiac markers negative. The patient had a supratherapeutic INR. Chest imaging as above. The patient did have mild elevation of his LFTs. He is a prior cholecystectomy. The patient was sent for ultrasound imaging which was unremarkable. On repeat abdominal examination he had no tenderness. He did not complain of abdominal pain. Given the history and findings the patient will need further evaluation and management in the hospital. Consultation was made with internal medicine. The patient was evaluated in the Emergency Room for further management. Consults Time Called: 1936 Consulting Physician: [facility] Returned Call: 1936 I discussed the case with Dr. [facility]. He will evaluate the patient for further treatment. Impression Primary Impression: Hypotension Additional Impressions: Weakness Acute electrocardiogram changes Elevated LFTs Scribe Attestation The scribe's documentation has been prepared under my direction and personally reviewed by me in its entirety. I confirm that the note above accurately reflects all work, treatment, procedures, and medical decision making performed by me. Departure Information Dispostion Being Evaluated By Hospitalist Referrals Jose Julian (PCP) Patient Instructions My [facility] Problem Qualifiers
--- NOTE | 2017-10-19 21:27 | History and Physical ---
History & Physical Date & Time of Service: Oct 19, 2017 at 20:57 Chief Complaint: Weakness,Dizziness Primary Care Physician: Jose Julian History of Present Illness Source: patient, hospital records The patient is an 87-year-old male with a past medical history of atrial fibrillation, hypothyroidism, glaucoma, and BPH that presents with weakness and EKG changes. The patient is currently living at [facility] independent living with his and experienced lightheadedness when standing this afternoon, telling his that he felt like he was given a fall over. The patient was evaluated at [facility] and found to have hypotension, and an EKG was taken and sent to his assistant front desk manager. His EKG was found to have some progression of ST depression in the anterior leads and was brought over to the hospital. His also states that he stated he was feeling a little unwell this morning, stating he was feeling warm. The patient has also had a one-week history of incontinence to urine. The patient has an appointment with Dr. Evans this coming Thursday. The patient denies any fevers, chills, chest pain, shortness of breath, or any other acute issues at this time. In the emergency department he was treated with fluids and his blood pressure subsequently returned to normal. The patient is currently on Coumadin for atrial fibrillation, and was found to have an INR of 3.8. The patient also has very limited eyesight due to his glaucoma. 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 Social History Smoking Status: Former Smoker Drug Use: none Marital Status: Housing status: lives with family Occupational Status: retired Immunizations History of Influenza Vaccine: Yes Influenza Vaccine Date: Aug 12, 2007 History of Tetanus Vaccine?: Yes History of Pneumococcal: Yes Pneumococcal Date: Sep 02, 2000 History of Hepatitis B Vaccine: Unknown Multi-Drug Resistant Organisms History of MDRO: No Allergies Coded Allergies: No Known Allergies (Verified , 05/16/17) Home Medications Scheduled B-Complex W/ Folic Acid (Super B Complex Maxi), 1 TAB PO DAILY Brimonidine Tartrate (Alphagan P), 1 DROP OPB BID Cholecalciferol (Vitamin D-3), 1 TAB PO QAM Dorzolamide Hcl-Timolol Maleat (Cosopt Oph), 1 DROPS OPB BID Dutasteride-Tamsulosin Hcl (Caroline), 1 CAP PO QPM Galantamine Hydrobromide (Razadyne Ext Rel), 16 MG PO DAILY Latanoprost (Xalatan 0.005% Oph Carlota), 1 DROPS OPB HS Levothyroxine Sodium (Synthroid), 50 MCG PO QAM Metoprolol Tartrate (Lopressor), 12.5 MG PO BID Mirabegron (Myrbetriq Er), 50 MG PO DAILY Multivitamin (Multivitamin), 1 TAB PO DAILY Ocuvite Preservision (Ocuvite Preservision), 1 TAB PO BID Warfarin Sod (Jantoven), 2.5 MG PO DIRECTED Review of Systems Constitutional: No fever, No chills, No weakness, No fatigue Respiratory: No cough, No shortness of breath Cardiovascular: No chest pain, No palpitations Abdomen: No pain, No nausea, No vomiting, No diarrhea, No constipation, No GI bleeding Genitourinary - Male: + urinary incontinence, No hematuria, No dysuria Endocrine: No fatigue, No excessive urination Physical Exam Vital Signs Date Time Temp Pulse Resp B/P (MAP) Pulse Ox O2 Delivery O2 Flow Rate FiO2 10/19/17 20:39 82 10/19/17 20:15 78 16 122/75 98 Room Air 10/19/17 18:24 36.9 84 18 116/77 99 Room Air 10/19/17 17:25 97 Room Air 10/19/17 17:18 36.6 76 18 118/82 98 Room Air 10/19/17 16:32 76 10/19/17 16:13 36.3 82 20 95/66 98 Room Air General Appearance: WD/WN, no apparent distress Head: normocephalic, atraumatic Eyes: normal inspection, sclerae normal Neck: supple, no carotid bruits Respiratory/Chest: chest non-tender, lungs clear, normal breath sounds Cardiovascular: regular rate, rhythm, no edema, no gallop, no murmur Abdomen/GI: normal bowel sounds, non tender, soft Neurologic/Psych: environmental management specialist II-XII nml as tested, no motor/sensory deficits, alert, oriented x 3 Diagnostics Laboratory Results Results Past 24 Hours Test 10/19/17 18:00 10/19/17 18:20 Range/Units Urine Color YELLOW Urine Appearance CLEAR CLEAR Urine pH 5.0 4.5-7.5 Urine Specific [place] 1.013 1.000-1.030 Urine Protein NEG NEG Urine Glucose (UA) NEG NEG Urine Ketones NEG NEG Urine Occult Blood NEG NEG Urine Nitrite NEG NEG Urine Bilirubin NEG NEG Urine Urobilinogen NEG NEG Urine Leukocyte Esterase NEG NEG White Blood Count 7.53 4.8-10.8 K/uL Red Blood Count 4.85 4.7-6.1 M/uL Hemoglobin 16.8 14.0-18.0 g/dL Hematocrit 47.7 42-52 % Mean Corpuscular Volume 98.4 80-100 fL Mean Corpuscular Hemoglobin 34.6 25-34 pg Mean Corpuscular Hemoglobin Concent 35.2 32-36 g/dl Platelet Count 156 130-400 K/uL Mean Platelet Volume 10.5 7.4-10.4 fL Neutrophils (%) (Auto) 61.2 % Lymphocytes (%) (Auto) 27.4 % Monocytes (%) (Auto) 9.2 % Eosinophils (%) (Auto) 1.5 % Basophils (%) (Auto) 0.4 % Neutrophils # (Auto) 4.62 1.4-6.5 K/uL Lymphocytes # (Auto) 2.06 1.2-3.4 K/uL Monocytes # (Auto) 0.69 0.11-0.59 K/uL Eosinophils # (Auto) 0.11 0-0.5 K/uL Basophils # (Auto) 0.03 0-0.2 K/uL RDW Standard Deviation 48.5 36.4-46.3 fL RDW Coefficient of Variation 13.6 11.5-14.5 % Immature Granulocyte % (Auto) 0.3 % Immature Granulocyte # (Auto) 0.02 0.00-0.02 K/uL Prothrombin Time 38.6 9.0-12.0 SECONDS Prothromb Time International Ratio 3.8 0.9-1.1 Activated Partial Thromboplast Time 36.3 21.0-31.0 SECONDS Partial Thromboplastin Ratio 1.4 Sodium Level 140 136-145 mmol/L Potassium Level 3.1 3.5-5.1 mmol/L Chloride Level 102 98-107 mmol/L Carbon Dioxide Level 33 21-32 mmol/L Anion Gap 5.0 3-11 mmol/L Blood Urea Nitrogen 53 7-18 mg/dl Creatinine 1.51 0.60-1.40 mg/dl Est Creatinine Clear Calc Drug Dose 31.0 ml/min Estimated GFR () 46.8 Estimated GFR (Non- 40.4 BUN/Creatinine Ratio 35.2 10-20 Random Glucose 94 70-99 mg/dl Calcium Level 9.0 8.5-10.1 mg/dl Magnesium Level 2.5 1.8-2.4 mg/dl Total Bilirubin 2.2 0.2-1 mg/dl Direct Bilirubin 0.5 0-0.2 mg/dl Aspartate Amino Transf (AST/SGOT) 18 15-37 U/L Alanine Aminotransferase (ALT/SGPT) 23 12-78 U/L Alkaline Phosphatase 118 45-117 U/L Total Creatine Kinase 44 39-308 U/L Creatine Kinase MB 0.7 0.5-3.6 ng/ml Creatine Kinase MB Ratio 1.6 0-3.0 Troponin I < 0.015 0-0.045 ng/ml Total Protein 7.1 6.4-8.2 gm/dl Albumin 3.8 3.4-5.0 gm/dl Lipase 241 73-393 U/L Thyroid Stimulating Hormone (TSH) 0.963 0.300-4.500 uIu/ml Microbiology Results 10/19/17 Blood Culture, Received Pending 10/19/17 Blood Culture, Received Pending 10/19/17 Urine Culture, Received Pending Impression Assessment and Plan The patient is an 87-year-old male with a past medical history of atrial fibrillation, hypothyroidism, glaucoma, and BPH that presents with weakness and EKG changes. 1) Generalized Weakness - Hypotension on admission resolved after 500cc bolus - EKG shows ST depression in anterior leads that has progressed when compared to May 2017, currently NSR - Troponin < 0.015 --> Repeat q6h x 3 - Consult Cardiology - Possibly sensitive to low potassium - CXR: No acute cardiopulmonary abnormalities 2) Hypokalemia (K+ 3.1) - 40 mEq KCl - Repeat BMP tomorrow AM 3) Supratherapeutic INR - INR of 3.8 - Hold coumadin 4) JASIEL - INR of 1.5 - NS + 20 meq K+ at 80 mls/hr 5) Hyperbilirubinemia - T-Bili 2.2, D Bili 0.5 - Isolated increase in Bili most likely secondary to [place] - S/p cholecystectomy, no stones visualized on US - Repeat LFTs tomorrow AM 6) Urinary Incontinence - Continue home Mirabegron - UA shows no signs of UTI - Urine Culture - Urology appointment scheduled for Thursday with Dr. Evans 7) Atrial Fibrillation - Continue home Lopressor 12.5 mg PO bid - Currently NSR on EKG - Supratherapeutic INR 8) Hypothyroidism - Continue home synthroid 50mcg qAM 9) Dementia - Continue home Galantamine 10) Glaucoma - Continue home eye drops (Alphagan P, Cosorpt) 11) DVT Prophylaxis - Supratherapeutic INR - Holding Coumadin 12) Code Status - Full Resuscitation Attending addendum: I have physically seen this patient, have supervised the medical residents activities, and agree with the H&P unless as otherwise noted. Assessment and Plan: Generalized weakness/hypotension/hypokalemia/JASIEL/abnormal EKG/atrial fibrillation-- The patient will be admitted to telemetry for serial cardiac enzymes, serial EKG's, cardiac rhythm monitoring and a 2-D echocardiogram with Dopplers. Blood pressure is improved with 500 mL normal saline bolus. Give 40 mEq KCl now, and repeat BMP and magnesium level in the a.m. Creatinine 1.5 on admission, labs as above with rehydration Continue metoprolol tartrate 12.5 mg by mouth twice a day Hold Coumadin until INR is less than 2.5. Will need PT/OT assessment Level of Care Telemetry Advanced Directives Existing Living Will: Yes Resuscitation Status FULL RESUSCITATION VTE Prophylaxis VTE Risk Assessment Done? Y/N: Yes Risk Level: Moderate Given or contraindicated: SCD's, Contraindicated (Holding Coumadin due to supratherapeutic INR) Resident Tracking Resident Involvement: Resident Care Provided Care Provided: Adult Hospital Medicine
[2017-10-19] MEDS ORDERED: IV FLUIDS COMPLETED PRN (21:45)
[2017-10-19] MEDS: NSS + 20MEQ KCL 1000ML 1,000 ML IV SCH (22:58)
[2017-10-19 23:00] VITALS: BP 111/74; PULSE 73; TEMP 36.6; O2SAT 99
[2017-10-19 23:30] VITALS: BP 128/66; PULSE 75; TEMP 36.6; O2SAT 99; Ht 170.2 cm; Wt 58.0 kg
[2017-10-20 00:05] VITALS: O2SAT 99
[2017-10-20 03:10] VITALS: BP 118/74; PULSE 82; TEMP 36.3; O2SAT 100
[2017-10-20] MEDS ORDERED: LEVOTHYROXINE 50 MCG TAB PO SCH (06:00)
[2017-10-20 06:55] LABS: BASO % 0.3 %; BASO ABS # 0.02 K/uL (0-0.2); EOS % 2.6 %; EOS ABS # 0.19 K/uL (0-0.5); HEMATOCRIT 42.1 % (42-52); HEMOGLOBIN 14.7 g/dL (14.0-18.0); IG# 0.01 K/uL (0.00-0.02); LYMPH % 29.5 %; LYMPH ABS # 2.15 K/uL (1.2-3.4); MEAN CELL VOLUME 98.8 fL (80-100); MEAN CORPUSCULAR HEMOGLOBIN 34.5 pg (25-34); MEAN CORPUSCULAR HGB CONC 34.9 g/dl (32-36); MEAN PLATELET VOLUME 10.5 fL (7.4-10.4); MONO % 8.2 %; NEUT % 59.3 %; NEUT ABS # 4.33 K/uL (1.4-6.5); PLATELET COUNT 137 K/uL (130-400); RED CELL DISTRIBUTION WIDTH CV 13.6 % (11.5-14.5); RED CELL DISTRIBUTION WIDTH SD 48.7 fL (36.4-46.3)
[2017-10-20 06:56] LABS: INR 3.4 (0.9-1.1)
[2017-10-20 07:26] LABS: ALBUMIN 2.9 gm/dl (3.4-5.0); BLOOD UREA NITROGEN 47 mg/dl (7-18); CALCIUM 8.3 mg/dl (8.5-10.1); CARBON DIOXIDE 28 mmol/L (21-32); CREATININE 1.28 mg/dl (0.60-1.40); GLUCOSE 89 mg/dl (70-99); POTASSIUM 3.5 mmol/L (3.5-5.1); SODIUM 142 mmol/L (136-145)
[2017-10-20 07:34] LABS: ALKALINE PHOSPHATASE 93 U/L (45-117); ALT/SGPT 18 U/L (12-78); AST/SGOT 14 U/L (15-37); TOTAL PROTEIN 5.5 gm/dl (6.4-8.2)
[2017-10-20 07:50] VITALS: BP 117/75; PULSE 74; TEMP 36.5; O2SAT 100
[2017-10-20] MEDS: NSS + 20MEQ KCL 1000ML 1,000 ML IV SCH (08:29)
[2017-10-20] MEDS ORDERED: DORZOLAMIDE/TIMOLOL 22.3/6.8MG/ML 10 ML BTL OPB SCH (09:00)
[2017-10-20] MEDS ORDERED: METOPROLOL TARTRATE 25 MG TAB PO SCH (09:00)
[2017-10-20] MEDS ORDERED: GALANTAMINE HYDROBROMIDE 8 MG CAPER PO SCH (09:00)
[2017-10-20] MEDS ORDERED: MIRABEGRON ER 25 MG TAB PO SCH (09:00)
[2017-10-20 11:34] VITALS: BP 97/60; PULSE 75; TEMP 36.5; O2SAT 98
--- NOTE | 2017-10-20 12:55 | ECHOCARDIOGRAM REPORT ---
*NOTICE TO RECEIVING LIBERTARIAN AGENCY This information is strictly Confidential and protected under [place] law. [place] law prohibits you from making any further disclosure of this information unless further disclosure is expressly permitted by the written consent of the person to whom it pertains or is authorized by law. A general authorization for the release of medical or other information is not sufficient for this purpose. Hospital accepts no responsibility if the information is made available to any other person, INCLUDING THE PATIENT. Interpretation Summary * Name: FLAQUITO WHEAT Study Date: 10/20/2017 11:02 AM BP: 117/75 mmHg * Patient Location: C.2T\S\S242\S\2 HR: 74 * : 1930 (M/d/yyyy) Gender: Male Height: 67 in * Age: 87 yrs Ethnicity: CA Weight: 127 lb * Ordering Physician: Kike Chatman * Referring Physician: Jose Julian * Performed By: Lis Cruz RDCS * * Reason For Study: Hypotension * BSA: 1.7 m2 * -- Conclusions -- * Left ventricular systolic function is normal. * No regional wall motion abnormalities noted. * Ejection Fraction = 55-60%. * There is borderline concentric left ventricular hypertrophy. * The left atrium is moderately dilated. * Aortic valve sclerosis mild, without significant aortic valvular stenosis. * There is mild to moderate mitral regurgitation. * There is mild to moderate tricuspid regurgitation. Procedure Details * A complete two-dimensional transthoracic echocardiogram was performed (2D, M-mode, Doppler and color flow Doppler). Left Ventricle * The left ventricle is normal in size. * There is borderline concentric left ventricular hypertrophy. * Ejection Fraction = 55-60%. * Left ventricular systolic function is normal. * No regional wall motion abnormalities noted. Right Ventricle * The right ventricle is not well visualized. * The right ventricular systolic function is normal as assessed by tricuspid annular plane systolic excursion (TAPSE) (normal >1.5 cm). Atria * The left atrium is moderately dilated. * The right atrium is mildly dilated. * No ASD detected; PFO is not assessed. Mitral Valve * The mitral valve is grossly normal. * There is mild to moderate mitral regurgitation. Tricuspid Valve * The tricuspid valve is not well visualized, but is grossly normal. * There is mild to moderate tricuspid regurgitation. Aortic Valve * The aortic valve is trileaflet. * The aortic valve opens well. * Aortic valve sclerosis mild, without significant aortic valvular stenosis. * No aortic regurgitation is present. Pulmonic Valve * The pulmonary valve is not well seen, but the Doppler examination is normal without significant regurgitation or stenosis. Great Vessels * The aortic root is normal size. * The pulmonary is not well visualized. Pericardium/Pleural * There is no pericardial effusion. Great Vessels * The inferior vena cava is not well visualized. MMode 2D Measurements and Calculations IVSd 1.3 cm IVSs 1.6 cm LVIDd 3.5 cm LVIDs 2.5 cm LVPWd 1.4 cm LVPWs 1.7 cm IVS/LVPW 0.92 FS 29.6 % EDV(Teich) 51.6 ml ESV(Teich) 21.8 ml EF(Teich) 57.7 % EDV(cubed) 43.6 ml ESV(cubed) 15.2 ml EF(cubed) 65.1 % % IVS thick 29.9 % % LVPW thick 22.5 % LV mass(C)d 155.9 grams LV mass(C)dI 93.5 grams/m\S\2 LV mass(C)s 147.4 grams LV mass(C)sI 88.4 grams/m\S\2 SV(Teich) 29.8 ml SI(Teich) 17.9 ml/m\S\2 SV(cubed) 28.4 ml SI(cubed) 17.0 ml/m\S\2 Ao root diam 2.8 cm Ao root area 6.1 cm\S\2 ACS 1.9 cm LA dimension 4.7 cm LA/Ao 1.7 LVAd ap4 22.7 cm\S\2 LVLd ap4 6.8 cm EDV(MOD-sp4) 62.7 ml EDV(sp4-el) 64.2 ml LVAs ap4 13.8 cm\S\2 LVLs ap4 5.8 cm ESV(MOD-sp4) 28.7 ml ESV(sp4-el) 28.0 ml EF(MOD-sp4) 54.3 % EF(sp4-el) 56.5 % LVAd ap2 21.0 cm\S\2 LVLd ap2 7.1 cm EDV(MOD-sp2) 58.3 ml EDV(sp2-el) 53.2 ml LVAs ap2 11.7 cm\S\2 LVLs ap2 5.8 cm ESV(MOD-sp2) 23.0 ml ESV(sp2-el) 20.0 ml EF(MOD-sp2) 60.6 % EF(sp2-el) 62.4 % LVLd %diff 3.9 % EDV(MOD-bp) 59.7 ml LVLs %diff 0.79 % ESV(MOD-bp) 25.0 ml EF(MOD-bp) 58.1 % SV(MOD-sp4) 34.0 ml SI(MOD-sp4) 20.4 ml/m\S\2 SV(MOD-sp2) 35.4 ml SI(MOD-sp2) 21.2 ml/m\S\2 SV(MOD-bp) 34.7 ml SI(MOD-bp) 20.8 ml/m\S\2 SV(sp4-el) 36.3 ml SI(sp4-el) 21.8 ml/m\S\2 SV(sp2-el) 33.2 ml SI(sp2-el) 19.9 ml/m\S\2 Doppler Measurements and Calculations MV E max capo 82.3 cm/sec MV A max capo 43.8 cm/sec MV E/A 1.9 MV dec time 0.17 sec LV V1 max PG 3.6 mmHg LV V1 max 94.1 cm/sec PA V2 max 118.4 cm/sec PA max PG 5.6 mmHg PI max capo 134.4 cm/sec PI max PG 7.2 mmHg PI dec slope 144.5 cm/sec\S\2 PI P1/2t 272.4 msec TR max capo 253.9 cm/sec
--- NOTE | 2017-10-20 13:54 | CARDIOLOGY CONSULTATION ---
DATE OF CONSULTATION: 10/20/2017 PERTINENT HISTORY: Mr. Mak is an 87-year-old male, admitted yesterday with orthostatic dizziness, hypertension, and an abnormal EKG. This consultation was ordered to assist in his cardiac management. Of note, the patient typically follows with Dr. Robledo in the outpatient setting. The patient was in his usual state of health until the day of presentation. He complained to his of orthostatic dizziness. He was sent to the nurse at [facility], who discovered low blood pressure. She performed an EKG, which noted anterior ST depression and therefore, he was sent to the emergency room for further evaluation. The patient received a liter of intravenous hydration and his blood pressure improved. The patient does not experience any exertional chest pain or limiting dyspnea. He further denies syncope, presyncope, PND, orthopnea, palpitations, lower extremity edema, and claudication. Currently, the patient is resting comfortably in the bedside chair without complaints. PAST MEDICAL HISTORY: 1. Permanent atrial fibrillation. 2. Chronic obstructive pulmonary disease. 3. Hypothyroidism. 4. Chronic renal insufficiency. 5. Dementia. 6. Macular degeneration. 7. BPH. 8. Appendectomy. 9. Cholecystectomy. 10. Left inguinal hernia repair - October 2011. 11. History of malignant melanoma. 12. History of bladder carcinoma. MEDICATIONS: 1. Metoprolol tartrate 12.5 mg b.i.d. 2. Synthroid 0.05 mg daily. 3. Razadyne 16 mg daily. 4. Cosopt drops b.i.d. 5. Xalatan drops daily. ALLERGIES: None. SOCIAL HISTORY: The patient is and lives with his at [facility]. Does not use tobacco or alcohol. FAMILY HISTORY: Noncontributory. REVIEW OF SYSTEMS: A 10-point review of systems is negative except for that described above. PHYSICAL EXAMINATION: GENERAL: This is a well-developed and well-nourished elderly white male, who is seated in a chair without complaints. VITAL SIGNS: Blood pressure is 100/60 with an irregular pulse of 75. Respiratory rate is 18. The patient is afebrile at 36.5 degrees Celsius. Saturation is 98% on room air. HEENT: Negative. NECK: Supple with full carotid upstrokes. There are no carotid bruits. Jugular venous pressure is flat at 90 degrees. There is no thyromegaly. CARDIOVASCULAR: Reveals a regular rhythm with normal S1 and S2. No S3, S4, or murmurs are noted. LUNGS: Clear without rales, rhonchi, or wheezes. ABDOMEN: Soft and nontender without bruits. EXTREMITIES: Reveal intact radial artery pulses bilaterally. There is no peripheral edema. DATA: CBC notes hemoglobin 14.7, hematocrit 42.1, white count 7.3, and platelet count 137,000. Electrolytes note a sodium of 142, potassium 3.9, chloride 108, bicarb 20, BUN 47, creatinine 1.28, and glucose 89. Troponin I level is less than 0.015 x3. TSH is normal at 0.963. INR is supratherapeutic at 3.4. EKG notes atrial fibrillation, left axis deviation, complete right bundle branch block, and anterolateral ST abnormality. 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 IMPRESSION: Mr. Mak was admitted with symptomatic hypotension. This has improved with the use of intravenous hydration. Although, his EKG is abnormal, is unchanged compared with the prior tracings. Fortunately, his troponin I levels are undetectable. No further cardiac evaluation is necessary. PLAN: 1. Agree with intravenous hydration. 2. Continue usual outpatient cardiac medications. 3. Further recommendations depending on his clinical course.
[2017-10-20 15:36] VITALS: BP 127/76; PULSE 78; TEMP 36.4; O2SAT 99
--- NOTE | 2017-10-20 15:42 | Discharge Instructions ---
Discharge Instructions Date of Service Oct 20, 2017. Admission Reason for Admission: Abnormal Ekg, Weakness Discharge Discharge Diagnosis / Problem: Weakness secondary to acute renal failure due to dehydration Discharge Goals Goal(s): Improve function Activity Recommendations Activity Limitations: resume your previous activity . Instructions / Follow-Up Instructions / Follow-Up With primary care physician within one week Please keep up with your fluid intake since decreased oral fluid intake affected your kidneys You will have your kidney function and protime/INR checked by your family physician to make sure they are in accepted range Current Hospital Diet Patient's current hospital diet: Regular Diet Discharge Diet Recommended Diet: AHA Diet (Heart Healthy) Pending Studies Studies pending at discharge: no Medical Emergencies . Who to Call and When: Medical Emergencies: If at any time you feel your situation is an emergency, please call 911 immediately. . Non-Emergent Contact Non-Emergency issues call your: Primary Care Provider . . "Provider Documentation" section prepared by Drea Mortensen. . VTE Core Measure Inpt VTE Proph given/why not?: Contraindicated (Holding Coumadin due to supratherapeutic INR)
[2017-10-20 15:59] VITALS: BP 127/76; PULSE 78; TEMP 36.4; O2SAT 99
[2017-10-20] MEDS ORDERED: LATANOPROST 0.005% OP SOLN 2.5 ML BTL OPB SCH (21:00)
--- NOTE | 2017-10-21 00:30 | Discharge Summary ---
Discharge Summary Date of Service Oct 20, 2017. Discharge Summary Admission Date: Oct 19, 2017 at 20:54 Discharge Date: Oct 20, 2017 Discharge Disposition: Home with services (patient lives at [facility]) Principal Diagnosis: weakness due to acute renal failure 2/2 dehydration Problems/Secondary Diagnoses: Urge incontinence, afib, hypothyroid, glaucoma, abnormal bilirubin Immunizations: Have You Had Influenza Vaccine: Yes Influenza Vaccine Date: Aug 12, 2007 History of Tetanus Vaccine?: Yes History of Pneumococcal: Yes Pneumococcal Date: Sep 02, 2000 History of Hepatitis B Vaccine: Unknown [facility] Medication Reconciliation Continued Medications: B-Complex W/ Folic Acid (Super B Complex Maxi) 1 Tab Tab 1 TAB PO DAILY Brimonidine Tartrate (Alphagan P) 0.15 % Carlota 1 DROP OPB BID Cholecalciferol (Vitamin D-3) 2,000 Unit Tab 1 TAB PO QAM Dorzolamide Hcl-Timolol Maleat (Cosopt Oph) 1 Carlota Carlota 1 DROPS OPB BID, ML Dutasteride-Tamsulosin Hcl (Caroline) 1 Cap Cap 1 CAP PO QPM, CAP Galantamine Hydrobromide (Razadyne Ext Rel) 16 Mg Cap 16 MG PO DAILY, CAP Latanoprost (Xalatan 0.005% Oph Carlota) 0.005 % Carlota 1 DROPS OPB HS, #2.5 ML 3 Refills Levothyroxine Sodium (Synthroid) 50 Mcg Tab 50 MCG PO QAM, TAB Metoprolol Tartrate (Lopressor) 25 Mg Tab 12.5 MG PO BID, TAB Mirabegron (Myrbetriq Er) 50 Mg Tab 50 MG PO DAILY, TAB Multivitamin (Multivitamin) Tab 1 TAB PO DAILY, TAB Ocuvite Preservision (Ocuvite Preservision) 1 Tab Tab 1 TAB PO BID, TAB Warfarin Sod (Jantoven) 2.5 Mg Tab 2.5 MG PO DIRECTED, TAB Discharge Exam ROS Constitutional: No fever, No chills, No weakness, No fatigue Respiratory: No cough, No shortness of breath Cardiovascular: No chest pain, No palpitations Abdomen: No pain, No nausea, No vomiting, No diarrhea, No constipation, No GI bleeding Genitourinary - Male: + urinary incontinence, No hematuria, No dysuria Endocrine: No fatigue, No excessive urination PE General Appearance: WD/WN, no apparent distress Head: normocephalic, atraumatic Eyes: normal inspection, sclerae normal Neck: supple, no carotid bruits Respiratory/Chest: chest non-tender, lungs clear, normal breath sounds Cardiovascular: regular rate, rhythm, no edema, no gallop, no murmur Abdomen/GI: normal bowel sounds, non tender, soft 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 The patient experienced lightheadedness when standing yesterday afternoon, was found to have hypotension, and an EKG was found to have some progression of ST depression in the anterior leads. The patient has also had a one-week history of urge incontinence to urine and states he has had poor oral intake because of fear for incontinence. In the emergency department he was treated with fluids and his blood pressure subsequently returned to normal. IVF were continued on the floor and his creatinine improved. The patient is currently on Coumadin for atrial fibrillation, and was found to have an INR of 3.8. His coumadin has been held since 10/20/17. The patient has an appointment with his urologist - Dr. Evans this coming Thursday for continued evaluation of incontinence. Recommended increased PO intake, recheck of BMP, PT/INR, keeping outpatient evaluation for incontinence/extra absorbant pads/liners/bed coverings. Generalized Weakness, secondary to acute renal failure in setting of dehydration - Hypotension on admission resolved after 500cc bolus - EKG shows ST depression in anterior leads that has progressed when compared to May 2017, currently NSR - Troponin < 0.015 --> Repeats subsequently negative - Cardiology consulted, stable EKG changes in setting of negative troponin, unlikely cardiac ischemia. - Echo obtained: * Left ventricular systolic function is normal. * No regional wall motion abnormalities noted. * Ejection Fraction = 55-60%. * There is borderline concentric left ventricular hypertrophy. * The left atrium is moderately dilated. * Aortic valve sclerosis mild, without significant aortic valvular stenosis. * There is mild to moderate mitral regurgitation. * There is mild to moderate tricuspid regurgitation. - CXR: No acute cardiopulmonary abnormalities JASIEL - Cr of 1.5 on admission; after fluids 1.28 Poor oral intake - intentional due to urinary incontinence - reiterated the need to increase oral intake. - outpatient monitoring Hypokalemia (K+ 3.1 on admission) - 40 mEq KCl given, K bumped to 3.5 Supratherapeutic INR - INR of 3.8, 3.4 on discharge - Held coumadin for one day and resumed on discharge Hyperbilirubinemia - T-Bili 2.2, D Bili 0.5 - Isolated increase in Bili most likely secondary to Dixon - S/p cholecystectomy, no stones visualized on US - Repeat LFTs show no change; consistent with prior labs Urinary Urge Incontinence - Continue home Mirabegron - UA shows no signs of UTI; Bladder scan after 150cc void showed 36cc postvoid residual - Urine Culture sent; awaiting results - Urology appointment scheduled for Thursday with Dr. Evans Atrial Fibrillation - Continue home Lopressor 12.5 mg PO bid - Currently NSR on EKG - Supratherapeutic INR Hypothyroidism - Continue home synthroid 50mcg qAM Dementia - Continue home Galantamine Glaucoma - Continue home eye drops (Alphagan P, Cosorpt) Total Time Spent: Greater than 30 minutes This includes examination of the patient, discharge planning, medication reconciliation, and communication with other providers. Discharge Instructions Please refer to the electronic Patient Visit Report (Discharge Instructions) for additional information. Additional Copies To Jose Julian Resident Tracking Resident Involvement: Resident Care Provided Care Provided: Adult Hospital Medicine Reviewed: Pt Seen/Exam by Me History chronic urinary incontinence has been intentionally limiting oral intake to avoid incontinence at bedside Constitutional: denies: fever Respiratory: negative: short of breath Cardiovascular: denies chest pain General Appearance: no apparent distress Respiratory: lungs clear, no respiratory distress Cardiovascular: regular rate, rhythm Neurologic/Psychiatric: alert, oriented x 3 Skin Characteristics: warm/dry Assessment/Plan Resident Physician Supervision Note: I independently interviewed and examined the patient and verified the farmer history and physical, reviewed labs and image studies, discussed the case with the resident Dr. Doherty and agree with the findings and care plan. Time spent in discharge 40min
== END 2017-10-20 16:20 | disposition home or self-care (01) ==
LOC: C.EDB 16:08 → C.2T 20:54 → ENRESERV 21:12 → EDBEDREQ 21:44
PROVIDERS: ADMIT Student in an Organized Health Care Education/Training Program; ATTEND Family Medicine
DX: N17.9 Acute kidney failure, unspecified (principal); E86.0 Dehydration; I95.9 Hypotension, unspecified; I48.91 Unspecified atrial fibrillation; I25.10 Atherosclerotic heart disease of native coronary artery without angina pectoris; H40.9 Unspecified glaucoma; E03.9 Hypothyroidism, unspecified; I51.7 Cardiomegaly; N40.0 Benign prostatic hyperplasia without lower urinary tract symptoms; R94.31 Abnormal electrocardiogram [ECG] [EKG]; E87.6 Hypokalemia; H35.30 Unspecified macular degeneration; I48.2 Chronic atrial fibrillation; E80.7 Disorder of bilirubin metabolism, unspecified; F03.90 Unspecified dementia, unspecified severity, without behavioral disturbance, psychotic disturbance, mood disturbance, and anxiety; R32 Unspecified urinary incontinence; Z79.899 Other long term (current) drug therapy; Z85.51 Personal history of malignant neoplasm of bladder; Z87.891 Personal history of nicotine dependence; Z85.820 Personal history of malignant melanoma of skin

== ENCOUNTER → 2017-10-21 | Outpatient (CLI) | payer BC ==
[~2017-10-21] MED LIST changes: +RMNER16 PO; -WARF5TAB7 PO; -ZNTT/150 PO
[2017-10-21 09:28] LABS: INR 2.5 (0.9-1.1)
== END ==
LOC: C.LABFOXMH 08:56
PROVIDERS: ATTEND Internal Medicine Hospice and Palliative Medicine
DX: Z79.01 Long term (current) use of anticoagulants (principal)

== ENCOUNTER → 2017-10-27 | Outpatient (CLI) | payer BC ==
[2017-10-27 11:12] LABS: BLOOD UREA NITROGEN 22 mg/dl (7-18); CALCIUM 8.7 mg/dl (8.5-10.1); CARBON DIOXIDE 22 mmol/L (21-32); CREATININE 0.98 mg/dl (0.60-1.40); GLUCOSE 87 mg/dl (70-99); SODIUM 141 mmol/L (136-145)
== END ==
LOC: C.LABFOXAE 09:15
PROVIDERS: ATTEND Internal Medicine Hospice and Palliative Medicine
DX: E86.0 Dehydration (principal)

== ENCOUNTER → 2017-11-04 | Outpatient (CLI) | payer BC ==
[2017-11-04 08:55] LABS: INR 2.3 (0.9-1.1)
== END ==
LOC: C.LABFOXAE 07:51
PROVIDERS: ATTEND Internal Medicine Hospice and Palliative Medicine
DX: Z79.01 Long term (current) use of anticoagulants (principal); Z51.81 Encounter for therapeutic drug level monitoring

== ENCOUNTER → 2017-12-02 | Outpatient (CLI) | payer BC | END | disposition home or self-care (01) | LOC: C.LABFOXAE 09:32 | PROVIDERS: ATTEND Internal Medicine Hospice and Palliative Medicine | DX: Z79.01 Long term (current) use of anticoagulants (principal) ==